=== PATIENT | male | born 1955 | race Caucasian/White ===

== ENCOUNTER 2017-10-20 19:28 | Emergency (ER) | payer MEDICARE ==
[~2017-10-20 19:28] MED LIST: ASPI-516 CHEW; LISI20TA PO; SIMV20TA PO; ZOSTINJ SQ
[2017-10-20 19:37] VITALS: BP 184/86; PULSE 106; RESP 18; TEMP 98.8; O2SAT 99
--- NOTE | 2017-10-20 20:09 | PD ---
HPI Chief Complaint: Back/ Neck Pain or Injury Time Seen by Provider: 19:39 Travel History International Travel<30 days: No Contact w/Intl Traveler<30days: No Traveled to known affect area: No History of Present Illness HPI The patient is a 62 year old male who presents to the [facility] emergency department with a history of low back pain on the left side that began earlier today. The patient's history is overall nonverbal related to a prior history of stroke although he can say 1 or 2 word sentences, however he mainly communicates by writing on a white board. The patient denies any trauma, heavy lifting, or fall. The patient does have residual weakness related to a stroke involving his right side of his body. The patient reports that he does live with family. The patient is noted to have an abrasion to the right orthodoxy and right side of his forehead as well as a sub-conjunctival hemorrhage involving the left eye, however when asked how these were acquired, the patient does not want to discuss it. I asked the patient whether anyone was hurting him, however the patient denies this. On review of systems he does report having some recent fevers, however these are subjective and he is unsure how high they were. He denies having any worsening cough or congestion, neck pain, chest pain , shortness of breath, abdominal pain, vomiting, diarrhea, urinary symptoms, or new neurologic symptoms. The patient denies having any radiation of the pain down into his legs. He denies having any loss of bowel or bladder control. PFSH Past Medical History Narrative Medical The patient's past medical history is significant for prior cerebrovascular accident, hypertension, tobacco abuse, alcohol abuse Cerebrovascular Accident: Yes Diminished Hearing: No Hypertension: Yes Immunizations Current: Yes Past Surgical History Narrative Surgical The patient denies any past surgical history. Surgical History: No Previous Surgery Social History Alcohol Use: Yes (10-12 beers daily.) Tobacco Use: Yes (1 pack per day) Substance Use: No Allergies-Medications (Allergen,Severity, Reaction): Coded Allergies: No Known Allergies (Unverified Allergy, Unknown, 10/20/17) Reported Meds & Prescriptions Reported Meds & Active Scripts Active Flexeril (Cyclobenzaprine HCl) 5 Mg Tab 5 Mg PO TID PRN Zostavax Inj (Zoster Vaccine Live) 0.65 Ml Inj 0.65 Ml SQ .ONCE Simvastatin 20 Mg Tab 20 Mg PO DAILY Lisinopril-Hctz 20-12.5 Mg Tab 1 Tab PO DAILY Reported Aspirin 81 Mg Chew 81 Mg CHEW DAILY Review of Systems Except as stated in HPI: all other systems reviewed are Neg General / Constitutional: Positive: Fever Eyes: No: Visual changes HENT: No: Headaches Cardiovascular: No: Chest Pain or Discomfort Respiratory: No: Shortness of Breath Gastrointestinal: No: Nausea, Vomiting, Diarrhea, Abdominal Pain Genitourinary: No: Urgency, Frequency, Dysuria Musculoskeletal: Positive: Myalgias, Pain Skin: No Rash Neurologic: No: Weakness, Focal Abnormalities, Headache, Change in Mentation, Sensory Disturbance Psychiatric: No: Depression Endocrine: No: Polydipsia Hematologic/Lymphatic: No: Easy Bruising Physical Exam Narrative General: The patient is a well-developed well-nourished male in no acute distress. Head and Neck exam: Head is normocephalic, evidence of prior trauma with an abrasion to the right orthodoxy, small abrasion to the right side of the forehead. These abrasions are older appearing. Eyes: EOMI, pupils are equal round and reactive to light. The patient is noted to have along the temporal aspect of the left eye is subconjunctival hemorrhage. Nose: Midline septum with pink mucous membranes Mouth: Dentition unremarkable. Moist mucus membranes. Posterior oropharynx is not erythematous. No tonsillar hypertrophy. Uvula midline. Airway patent. Neck: No palpable lymphadenopathy. No nuchal rigidity. No thyromegaly. Cardiovascular: Sinus tachycardia in the low 100 without murmurs, gallops, or rubs. No pulse deficit to the extremities on simultaneous auscultation and palpation of his radial artery. Lungs: Clear to auscultation bilaterally. No wheezes, rhonchi, or rales. Abdomen: Soft, without tenderness to palpation in all 4 quadrants of the abdomen. No guarding, rebound, or rigidity. Normal bowel sounds are audible. No tenderness on palpation of McBurney's point. Negative Jensen sign. Extremities: No clubbing, cyanosis, or edema. 2+ pulses in all 4 extremities. No calf tenderness on palpation. The patient is noted to have some evidence of contracture to the right upper extremity from his prior stroke. The patient is noted to have an abrasion to the right great toe. Back: No spinous process tenderness to palpation. The patient has left-sided CVA tenderness on palpation. Neurologic Exam: At baseline related to his prior stroke. The patient is nonverbal. The patient is able to move all extremities but does have some residual weakness of the right upper and right lower extremity on exam from his prior stroke. No evidence of facial asymmetry Skin Exam: No rash noted. Intact skin that is warm and dry. Data Data Last Documented VS Vital Signs Date Time Temp Pulse Resp B/P (MAP) Pulse Ox O2 Delivery O2 Flow Rate FiO2 10/20/17 20:46 18 98 Room Air 10/20/17 19:37 98.8 106 184/86 (118) Orders Orders Electrocardiogram (10/20/17 19:53) Complete Blood Count With Diff (10/20/17:53) Basic Metabolic Panel (Bmp) (10/20/17 19:53) Creatine Kinase (Cpk) (10/20/17 19:53) Ckmb (Isoenzyme) Profile (10/20/17:53) Troponin I (10/20/17:53) Prothrombin Time / Inr (Pt) (10/20/17 19:53) Act Partial Throm Time (Ptt) (10/20/17 19:53) C-Reactive Protein (Crp) (10/20/17 19:53) Urinalysis - C+S If Indicated (10/20/17 19:53) Magnesium (Mg) (10/20/17 19:53) Chest, Single Ap (10/20/17 19:53) Iv Access Insert/Monitor (10/20/17:53) Ecg Monitoring (10/20/17:53) Oximetry (10/20/17 19:53) Drug Screen, Random Urine (10/20/17 19:53) Alcohol (Ethanol) (10/20/17 19:53) Ct Cerv Spine W/O Contrast (10/20/17 19:53) Ct Lumb Spine W/O Contrast (10/20/17 19:53) Pelvis, Ap Only (Routine) (10/20/17 20:02) CKMB (10/20/17 20:37) CKMB% (10/20/17 20:37) Sodium Chlorid 0.9% 500 Ml Inj (Ns 500 M (4/22/18 21:45) Ketorolac Inj (Toradol Inj) (10/20/17 21:45) Labs Laboratory Tests Test 10/20/17 20:30 10/20/17 20:37 Urine Color YELLOW Urine Turbidity CLEAR Urine pH 5.5 Urine Specific [place] 1.015 Urine Protein TRACE mg/dL Urine Glucose (UA) 300 mg/dL Urine Ketones 40 mg/dL Urine Occult Blood SMALL Urine Nitrite NEG Urine Bilirubin NEG Urine Urobilinogen LESS THAN 2.0 MG/DL Urine Leukocyte Esterase NEG Urine RBC 1 /hpf Urine WBC 2 /hpf Urine Hyaline Casts 8 /lpf Urine Mucus FEW /lpf Microscopic Urinalysis Comment CULT NOT INDICATED Urine Opiates Screen NEG Urine Barbiturates Screen NEG Urine Amphetamines Screen NEG Urine Benzodiazepines Screen NEG Urine Cocaine Screen NEG Urine Cannabinoids Screen NEG White Blood Count 10.0 TH/MM3 Red Blood Count 4.01 MIL/MM3 Hemoglobin 13.4 GM/DL Hematocrit 38.4 % Mean Corpuscular Volume 95.7 FL Mean Corpuscular Hemoglobin 33.4 PG Mean Corpuscular Hemoglobin Concent 34.9 % Red Cell Distribution Width 13.3 % Platelet Count 256 TH/MM3 Mean Platelet Volume 7.5 FL Neutrophils (%) (Auto) 84.6 % Lymphocytes (%) (Auto) 6.6 % Monocytes (%) (Auto) 8.4 % Eosinophils (%) (Auto) 0.0 % Basophils (%) (Auto) 0.4 % Neutrophils # (Auto) 8.4 TH/MM3 Lymphocytes # (Auto) 0.7 TH/MM3 Monocytes # (Auto) 0.8 TH/MM3 Eosinophils # (Auto) 0.0 TH/MM3 Basophils # (Auto) 0.0 TH/MM3 CBC Comment DIFF FINAL Differential Comment Prothrombin Time 10.7 SEC Prothromb Time International Ratio 1.1 RATIO Activated Partial Thromboplast Time 25.4 SEC Blood Urea Nitrogen 9 MG/DL Creatinine 1.10 MG/DL Random Glucose 116 MG/DL Calcium Level 8.7 MG/DL Magnesium Level 2.1 MG/DL Sodium Level 135 MEQ/L Potassium Level 4.0 MEQ/L Chloride Level 98 MEQ/L Carbon Dioxide Level 25.3 MEQ/L Anion Gap 12 MEQ/L Estimat Glomerular Filtration Rate 68 ML/MIN Total Creatine Kinase 750 U/L Creatine Kinase MB 4.8 NG/ML Creatine Kinase MB % 0.6 % Troponin I 0.03 NG/ML C-Reactive Protein 2.10 MG/DL Ethyl Alcohol Level LESS THAN 3 MG/DL MDM Medical Decision Making Medical Screen Exam Complete: Yes Emergency Medical Condition: Yes Medical Record Reviewed: Yes Interpretation(s) Last Impressions Pelvis X-Ray 10/20/172001 Signed Impressions: Service Date/Time: Friday, October 20, 2017 20:14 - CONCLUSION: No acute pelvis abnormality is identified. Moy Garvey MD Lumbar Spine CT 10/20/171952 Signed Impressions: Service Date/Time: Friday, October 20, 2017 21:04 - CONCLUSION: 1. Mild degenerative change of the lumbar spine, as above. Findings are most significant at L5-S1 where there is some mild/moderate bilateral neural foraminal stenosis. No canal stenosis is present. 2. Other findings include severe atherosclerotic disease and hepatic steatosis. Moy Garvey MD Chest X-Ray 10/20/171952 Signed Impressions: Service Date/Time: Friday, October 20, 2017 20:18 - CONCLUSION: Underinflation with slight blunting left costophrenic sulcus could be related to atelectasis or small pleural effusion. Otherwise, no acute finding is identified. Moy Garvey MD Cervical Spine CT 10/20/171952 Signed Impressions: Service Date/Time: Friday, October 20, 2017 21:00 - CONCLUSION: 1. Mild degenerative disc disease of the cervical spine, as above. No significant spinal canal stenosis or neural foraminal stenosis is present. 2. Severe atherosclerotic calcification in the right carotid bulb and right proximal internal carotid artery suggesting high-grade stenosis or potential occlusion of the right internal carotid artery. 3. There is an 11 mm right thyroid nodule. Moy Garvey MD Differential Diagnosis Musculoskeletal strain, versus lumbar radiculopathy, versus compression fracture , versus pyelonephritis Narrative Course During the course of the patient's emergency department visit, the patient's history, examination, and differential diagnosis were reviewed with the patient. The patient was placed on a cardiac surgeon with oximetry and frequent blood pressure monitoring. The patient had IV access obtained and blood work sent for analysis. The patient had an EKG done on arrival that shows a sinus rhythm heart rate of 97, no acute ST segment elevation is noted, QRS duration is 90 ms, QTC 383 ms. The patient's laboratory studies were reviewed and remarkable for a white count of 10, hemoglobin 13.4, platelets 256 with 84.6 neutrophils, lymphocytes 6.6, monocytes 8.4 750, MB percent 0.6, troponin I 0.03. C-reactive protein 2.10. PT PTT within normal limits, urine drug screen is negative, alcohol level is less than 3, urinalysis shows 300 glucose, 40 ketones, small occult blood, 1 RBC , culture not indicated Radiology studies were reviewed and remarkable for a chest x-ray that shows underinflation with slight blunting of the left costophrenic sulcus which could be related atelectasis or small pleural effusion otherwise unremarkable. Pelvis x-ray shows no acute abnormality. CT scan of the C-spine shows mild degenerative disc disease, no significant spinal canal stenosis or neural foraminal stenosis. Severe atherosclerotic calcification in the right carotid bulb and right proximal internal carotid artery suggesting high-grade stenosis or potential occlusion of the right internal carotid artery. There is also an 11 mm right thyroid nodule. The patient is given a copy of the CT scan results. The patient is given a lab slip to obtain an outpatient ultrasound with the results to go to his primary care physician, Dr. Escamilla. The patient is instructed to call his primary care doctor in the morning regarding his emergency department visit and results for follow-up. He is instructed to follow-up in the next 2 days for reexamination. I did speak to the family practice residents regarding this. They were agreeable with the plan for discharge. I did also speak to the vascular surgeon on-call, regarding these findings. He did agree to see the patient in follow-up. He gave me his office number for the patient for follow-up. He recommended that the patient call his office in the morning for an appointment. His office number is [phone]. He recommended that the patient continue on aspirin daily and a statin. The patient is on both according to the medication record. CT scan of the lumbar spine showed mild degenerative changes in the lumbar spine, findings are most significant at L5-S1 there is mild to moderate bilateral neural foraminal stenosis, no canal stenosis. The patient was given normal saline 500 mL bolus 1. The patient was also given Toradol for pain, 15 mg IV. The patient is resting comfortably and feels better, is alert and in no distress. The patient's results and examination findings were discussed with the patient. The repeat examination is unremarkable and benign. The history, exam, diagnostic testing, and current condition do not suggest any significant pathology to warrant further testing, continued ED treatment, admission, or surgical evaluation at this point. The vital signs have been stable. The patient does not have uncontrollable pain, intractable vomiting, or other significant symptoms. The patient's condition is stable and appropriate for discharge. The patient will pursue further outpatient evaluation with a primary care physician or other designated or consulting physician as indicated in the discharge instructions. The patient expressed understanding and was agreeable with this plan. Physician Communication Physician Communication The patient's case including history, pertinent physical examination findings, and laboratory studies were discussed with Dr. Ruaon and Dr. Crow. Diagnosis Primary Impression: Back pain Qualified Codes: M54.5 - Low back pain Additional Impressions: Degenerative disc disease at L5-S1 level Degenerative cervical disc Degenerative lumbar disc Carotid artery disease Qualified Codes: I77.9 - Disorder of arteries and arterioles, unspecified Referrals: Charly Crow MD call for appointment Scott Escamilla MD R3 2 days [facility] as needed Patient Instructions: Back Pain (ED), General Instructions Additional Instructions: Follow-up for a carotid ultrasound to further evaluate the calcifications noted of the carotid on the right side on CT. Continue your aspirin daily. I spoke to the vascular surgeon on-call, regarding these findings on your CT. He did agree to see you in follow-up. He gave me his office number for you for follow-up. He recommended that you call his office in the morning for an appointment. His office number is [phone]. Med/Other Pt SpecificInfo: Prescription(s) given Scripts Simvastatin (Simvastatin) 20 Mg Tab 20 MG PO DAILY for Cholesterol Management, #30 TAB 11 Refills Prov: Ariella Rebolledo MD 10/20/17 Cyclobenzaprine (Flexeril) 5 Mg Tab 5 MG PO TID Y for SPASM, #12 TAB 0 Refills Prov: Ariella Rebolledo MD 10/20/17 Disposition: 01 DISCHARGE HOME Condition: Stable Ariella Rebolledo MD Oct 20, 2017 20:09
--- NOTE | 2017-10-20 20:33 | RADRPT ---
EXAM DATE/TIME: 10/20/2017 20:14 [facility] COMPARISON: No previous studies available for comparison. INDICATIONS : Pain in lower back, patient denies fall. MEDICAL HISTORY : Stroke. SURGICAL HISTORY : None. ENCOUNTER: Initial ACUITY: 1 day PAIN SCORE: Non-responsive. LOCATION: Pelvis, midline. FINDINGS: Single AP view of the pelvis demonstrates no fracture or dislocation. Mineralization is within normal limits. There is no significant arthropathy. No soft tissue abnormality or radiopaque foreign body i s identified. CONCLUSION: No acute pelvis abnormality is identified. Moy Garvey MD on October 20, 2017 at 20:31 Board Certified Radiologist. This report was verified electronically.
--- NOTE | 2017-10-20 20:33 | RADRPT ---
EXAM DATE/TIME: 10/20/2017 20:18 [facility] COMPARISON: No previous studies available for comparison. INDICATIONS : Cough. MEDICAL HISTORY : None. SURGICAL HISTORY : None. ENCOUNTER: Initial ACUITY: 1 day PAIN SCORE: 0/10 LOCATION: Bilateral chest FINDINGS: Supine AP view of the chest demonstrates a normal-sized cardiac silhouette. Lungs are underinflated. There is slight blunting of the left costophrenic sulcus. No pneumothorax or airspace consolidation i s present. Bones and soft tissues demonstrate no acute finding. CONCLUSION: Underinflation with slight blunting left costophrenic sulcus could be related to atelectasis or small pleural effusion. Otherwise, no acute finding is identified. Moy Garvey MD on October 20, 2017 at 20:30 Board Certified Radiologist. This report was verified electronically.
[2017-10-20 20:46] VITALS: RESP 18; O2SAT 98
[2017-10-20 21:03] LABS: AUTOMATED NEUTROPHIL # 8.4 TH/MM3 (1.8-7.7); BASOPHIL % 0.4 % (0.0-2.0); HEMATOCRIT 38.4 % (39.0-51.0); HEMOGLOBIN 13.4 GM/DL (13.0-17.0); LYMPH % 6.6 % (9.0-44.0); LYMPHOCYTE # 0.7 TH/MM3 (1.0-4.8); MEAN CELL VOLUME 95.7 FL (80.0-100.0); MEAN CORPUSCULAR HEMOGLOBIN 33.4 PG (27.0-34.0); MEAN CORPUSCULAR HGB CONC 34.9 % (32.0-36.0); MEAN PLATELET VOLUME 7.5 FL (7.0-11.0); MONO % 8.4 % (0.0-8.0); MONOCYTE # 0.8 TH/MM3 (0-0.9); NEUT % 84.6 % (16.0-70.0); PLATELET COUNT 256 TH/MM3 (150-450); RED BLOOD COUNT 4.01 MIL/MM3 (4.50-5.90); RED CELL DISTRIBUTION WIDTH 13.3 % (11.6-17.2)
[2017-10-20 21:08] LABS: BILIRUBIN, URINE NEG (NEG); BLOOD, URINE SMALL (NEG); GLUCOSE,URINE 300 mg/dL (NEG); HYALINE CAST, URINE 8 /lpf (RARE); KETONE, URINE 40 mg/dL (NEG); MUCUS URINE FEW /lpf (OCC); NITRITE,URINE NEG (NEG); PH, URINE 5.5 (5.0-8.5); URINE COLOR YELLOW (YELLW/STRAW); URINE LEUKOCYTE ESTERASE NEG (NEG)
[2017-10-20 21:18] LABS: BICARBONATE 25.3 MEQ/L (21.0-32.0); BLOOD UREA NITROGEN 9 MG/DL (7-18); CALCIUM 8.7 MG/DL (8.5-10.1); CHLORIDE 98 MEQ/L (98-107); GLOMERULAR FILTRATION RATE 68 ML/MIN (>89); GLUCOSE,RANDOM 116 MG/DL (74-106); INTERNATIONAL NORMALIZED RATIO 1.1 RATIO; MAGNESIUM 2.1 MG/DL (1.5-2.5); PROTHROMBIN TIME - PATIENT 10.7 SEC (9.8-11.6); SODIUM (NA) 135 MEQ/L (136-145)
[2017-10-20 21:22] LABS: TROPONIN I 0.03 NG/ML (0.02-0.05)
--- NOTE | 2017-10-20 21:22 | RADRPT ---
EXAM DATE/TIME: 10/20/2017 21:00 [facility] COMPARISON: No previous studies available for comparison. INDICATIONS : Neck pain with no known injury. RADIATION DOSE: 26.50 CTDIvol (mGy) MEDICAL HISTORY : Hypertension. Cerebrovascular disease. SURGICAL HISTORY : None. ENCOUNTER: Initial ACUITY: 1 day PAIN SCALE: Non-responsive LOCATION: neck TECHNIQUE: Volumetric scanning of the cervical spine was performed. Multiplanar reconstructions in the sagittal, coronal and oblique axial planes were performed. Using automated exposure control and adjustment o f the mA and/or kV according to patient size, radiation dose was kept as low as reasonably achievable to obtain optimal diagnostic quality images. DICOM format image data is available electronically f or review and comparison. FINDINGS: VERTEBRAE: Normal vertebral body height. No fracture is visualized. ALIGNMENT: No anterolisthesis or retrolisthesis. The craniocervical junction and C1-C2 level demonstrate no abnormality. C2-C3: No disc herniation, canal stenosis, or neural foraminal stenosis. C3-C4: Mild decreased disc height with minimal posterior disc osteophyte complex. No spinal canal stenosis o r neural foraminal stenosis is present. C4-C5: No disc herniation, canal stenosis, or neural foraminal stenosis. C5-C6: No disc herniation, canal stenosis, or neural foraminal stenosis. C6-C7: Decreased disc height with posterior disc osteophyte complex. No spinal canal stenosis or neural fora chani stenosis is present. C7-T1: No disc herniation, canal stenosis, or neural foraminal stenosis. There is an 11 mm hypodense right thyroid nodule. Severe atherosclerotic calcification is present wit hin the right carotid bulb and right proximal internal carotid artery. CONCLUSION: 1. Mild degenerative disc disease of the cervical spine, as above. No significant spinal canal stenos is or neural foraminal stenosis is present. 2. Severe atherosclerotic calcification in the right carotid bulb and right proximal internal carotid artery suggesting high-grade stenosis or potential occlusion of the right internal carotid artery. 3. There is an 11 mm right thyroid nodule. Moy Garvey MD on October 20, 2017 at 21:14 Board Certified Radiologist. This report was verified electronically.
--- NOTE | 2017-10-20 21:25 | RADRPT ---
EXAM DATE/TIME: 10/20/2017 21:04 [facility] COMPARISON: No previous studies available for comparison. INDICATIONS : Low back pain with no known injury RADIATION DOSE: 35.75 CTDIvol (mGy) MEDICAL HISTORY : Hypertension. Cerebrovascular disease. SURGICAL HISTORY : None. ENCOUNTER: Initial ACUITY: 1 day PAIN SCALE: Non-responsive LOCATION: lower back TECHNIQUE: Volumetric scanning of the lumbar spine was performed. Multiplanar reconstructions in the sagittal, coronal and oblique axial planes were performed. Using automated exposure control and adjustment of the mA and/or kV according to patient size, radiation dose was kept as low as reasonably achievable t o obtain optimal diagnostic quality images. DICOM format image data is available electronically for review and comparison. FINDINGS: VERTEBRAE: Normal vertebral body height. No fracture is visualized. There are Schmorl's nodes at the superior en dplate of L1 and L2. ALIGNMENT: No evidence of subluxation. T12-L1: No disc herniation, canal stenosis, or neural foraminal stenosis. L1-L2: There are small endplate osteophytes anteriorly with a mild diffuse disc bulge. There is no spinal ca nal stenosis or neural foraminal stenosis. L2-L3: No disc herniation, canal stenosis, or neural foraminal stenosis. L3-L4: No disc herniation, canal stenosis, or neural foraminal stenosis. L4-L5: There is a mild diffuse disc bulge. No significant disc herniation, canal stenosis, or neural foramin al stenosis is present. L5-S1: There is decreased disc height with mild vacuum disc and a mild diffuse disc bulge is present. No spi nal canal stenosis is present. There is mild to moderate bilateral neural foraminal narrowing. Visualized paraspinous structures demonstrates severe atherosclerotic disease with hepatic steatosis. CONCLUSION: 1. Mild degenerative change of the lumbar spine, as above. Findings are most significant at L5-S1 whe re there is some mild/moderate bilateral neural foraminal stenosis. No canal stenosis is present. 2. Other findings include severe atherosclerotic disease and hepatic steatosis. Moy Garvey MD on October 20, 2017 at 21:19 Board Certified Radiologist. This report was verified electronically.
[2017-10-20] MEDS ORDERED: SODIUM CHLORID 0.9% 500 ML INJ 500 ML IV ONE (21:45)
[2017-10-20] MEDS ORDERED: KETOROLAC TROMETHAMINE 30 MG/ML (IVP) VIAL IV PUSH ONE (21:45)
[2017-10-20 22:30] VITALS: BP 167/77; PULSE 94; RESP 18; O2SAT 96
[2017-10-20] MEDS ORDERED: CYCL5TAB PO (22:42)
[2017-10-20] MEDS ORDERED: SIMV20TA PO (23:01)
--- NOTE | 2017-10-22 00:19 | EKG ---
Date Performed: 10/20/2017 Time Performed: 20:52:10 PTAGE: 62 years EKG: Sinus rhythm MODERATE ST DEPRESSION ABNORMAL ECG NO PREVIOUS TRACING DOCTOR: Ryan Hyatt Interpretating Date/Time 10/22/2017 00:18:11
== END 2017-10-20 23:17 | disposition home or self-care (01) ==
LOC: NEPC 19:28
DX: M54.5 Low back pain (principal); M51.37 Other intervertebral disc degeneration, lumbosacral region; M51.36 Other intervertebral disc degeneration, lumbar region; S00.81XA Abrasion of other part of head, initial encounter; R94.31 Abnormal electrocardiogram [ECG] [EKG]; H11.31 Conjunctival hemorrhage, right eye; I69.998 Other sequelae following unspecified cerebrovascular disease; R53.1 Weakness; I65.21 Occlusion and stenosis of right carotid artery; I10 Essential (primary) hypertension; F17.210 Nicotine dependence, cigarettes, uncomplicated; F10.10 Alcohol abuse, uncomplicated; E04.1 Nontoxic single thyroid nodule; X58.XXXA Exposure to other specified factors, initial encounter
CPT/HCPCS: 71045; 72125; 72131; 72170; 80048; 80307; 81001; 82550; 82552; 83735; 84484; 85025; 85610; 85730; 86140; 93005; 96361; 96374; 99285; J1885; J7040